=== PATIENT | male | born 1975 | race Two or more races ===

== ENCOUNTER 2022-11-05 16:47 | Inpatient (IN) ==
[2022-11-05] MEDS ORDERED: TYLENOL PO STA (17:03)
[2022-11-05] MEDS ORDERED: SODIUM CHLORIDE 1,000 ML IV STA ×2 (17:05→18:32)
[2022-11-05] MEDS ORDERED: ACETAMINOPHEN 1,000 MG/100 ML BAG IV ONE (17:12)
[2022-11-05 17:20] LABS: BASOPHILS % (AUTO) 0.1 % (0.0-3.0); HEMATOCRIT 34.9 % (42.0-52.0); HEMOGLOBIN 11.9 g/dl (14.0-18.0); IMMATURE GRANULOCYTE % (AUTO) 0.2 % (0.0-5.0); LYMPHOCYTES # (AUTO) 0.8 K/uL (0.60-3.4); LYMPHOCYTES % (AUTO) 8.8 (10.0-50.0); MEAN CORPUSCULAR HGB CONC 34.1 (31.8-35.4); MEAN CORPUSCULAR VOLUME 93.8 fl (80.0-94.0); MONOCYTES # (AUTO) 0.5 K/uL (0.4-2.0); MONOCYTES % (AUTO) 5.6 (0-10); NEUTROPHILS # (AUTO) 7.3 K/ul (2.0-6.9); NEUTROPHILS % (AUTO) 85.3 % (42.2-75.2); PLATELET COUNT 249 10^3/uL (140-440); RDW COEFFICIENT OF VARIATION 14.2 % (11.6-14.8); RED BLOOD COUNT 3.72 10^6/ul (4.70-6.10); WHITE BLOOD COUNT 8.61 K/ul (4.2-10.2)
[2022-11-05] MEDS ORDERED: ZOSYN 3.375 GM 3.375 GM in SODIUM CHLORIDE 100ML 100 ML IV STA (17:25)
--- NOTE | 2022-11-05 17:26 | ED.PDOC ---
General ED Provider: Dr. ALLYSON JEAN-BAPTISTE MD Chief Complaint: Fever Stated Complaint: fever Time Seen by Provider: 11/05/22 16:54 Information Source: Patient Primary Care Provider: PEDRO PABLO MANN Nursing and Triage Documentation Reviewed and Agree: Yes Does patient meet sepsis criteria?: Yes If yes, has appropriate treatment been initiated?: Yes System Inflammatory Response Syndrome: Temp 101F or Greater and Pulse >90 BPM Sepsis Protocol: For patient's 13 years and over: Temp is 96.8 and below OR 101 and greater Pulse >90 BPM Resp >20/minute Acutely Altered Mental Status Are patient's symptoms suggestive of a new infection, such as: -Pneumonia -Skin, Soft Tissue -Endocarditis -UTI -Bone, Joint Infection -Implantable Device -Acute Abdominal Infection -Wound Infection -Meningitis -Blood Stream Catheter Infection -Unknown Review of Systems Review Of Systems Constitutional: Reports Fever and Weakness Eyes: Reports No symptoms All Other Systems: Reviewed and Negative Physical Exam Physical Exam Appearance: Reports Ill-appearing Ill-appearing: Mild Pain Distress: None Eyes: Reports RADHA and EOMI ENT: Reports Ears normal and Nose normal Neck: Supple Respiratory: Reports Airway patent and Breath sounds diminished Cardiovascular: Reports No murmur and Tachycardia GI/: Reports Soft, Nontender, No masses and Other (PEG tube in place) Musculoskeletal: Reports Normal strength and ROM intact Skin: Reports Warm and Normal color Neurological: Reports Sensation intact Psychiatric: Reports Affect appropriate Interpretation EKG Interpretation Time of EKG #1: 17:11 Rate: Tachy Rhythm: Sinus Ectopy: None [place]: NL ST Segment: Normal Interpretation: no signs of acute ischemia Critical Care Note Critical Care Note Total Critical Care Time (mins): 30 Course Course 11/05/22 17:14 11/05/22 17:14 Orders, Labs, Meds: Lab Review 11/05/22 11/05/22 11/05/22 17:14 18:02 18:10 WBC 8.61 RBC 3.72 L Hgb 11.9 L Hct 34.9 L MCV 93.8 MCH 32.0 H MCHC 34.1 RDW Coeff of Meliza 14.2 Plt Count 249 Immature Gran % (Auto) 0.2 Neut % (Auto) 85.3 H Lymph % (Auto) 8.8 L [place] % (Auto) 5.6 Eos % (Auto) 0.0 Baso % (Auto) 0.1 Neut # (Auto) 7.3 H Lymph # (Auto) 0.8 [place] # (Auto) 0.5 Eos # (Auto) 0.0 Baso # (Auto) 0.0 Immature Gran # (Auto) 0.0 Sodium 135.1 Potassium 3.54 Chloride 102.8 Carbon Dioxide 25.9 Anion Gap 9.94 BUN 16.1 Creatinine 1.06 Estimated GFR (MDRD) 76.00 BUN/Creatinine Ratio 15.18 Glucose 132.0 H Lactic Acid 0.90 Calcium 8.49 Total Bilirubin 0.85 AST 28.8 ALT 36.0 Alkaline Phosphatase 79.8 Total Protein 7.84 Albumin 4.33 Globulin 3.51 Albumin/Globulin Ratio 1.23 Influ A Molecular Assay Negative by naat Influ B Molecular Assay Negative by naat SARS CoV-2 RNA Rapid STANLEY Negative Orders Category Date Time Status ADMIT PATIENT INPATIENT .[facility] ([facility]IT[facility] BED) ADMISSION 11/05/22 19:13 Active EKG-(ED ONLY) Stat CARDIO 11/05/22 17:05 Completed TELEMETRY MONITORING TELE CARE 11/05/22 19:14 Active Monitor [ED HEALTH TEACHER APPLIED] .ONCE EMERGENCY 11/05/22 17:25 Active BLOOD CULTURE Stat LAB 11/05/22 17:14 Received CBC W/ AUTO DIFF Stat LAB 11/05/22 17:14 Completed CMP [COMPREHENSIVE METABOLIC PANEL] Stat LAB 11/05/22 17:14 Completed COVID [SARS COV-2 RNA RAPID STANLEY] Stat LAB 11/05/22 18:10 Completed FLU A & B MOLECULAR [FLU A/B MOLECULAR] Stat LAB 11/05/22 18:02 Completed LACTIC ACID Stat LAB 11/05/22 17:14 Completed URINALYSIS C & S IF INDICATED Stat LAB 11/05/22 17:02 Uncollected Acetaminophen Meds 11/05/22 17:12 Discontinued 1,000 mg in 100 ml IV ONCE Acetaminophen [Tylenol] Meds 11/05/22 17:03 Discontinued 650 mg PO ONCE STA Piperacillin Sodium/Tazobactam [Zosyn 3.375 gm] 3.375 Meds 11/05/22 17:25 Discontinued gm 0.9 % Sodium Chloride [Sodium Chloride 100Ml] 100 ml IV ONCE Sodium Chloride 0.9% [Sodium Chloride] 1,000 ml Meds 11/05/22 17:05 Discontinued IV BOLUS Sodium Chloride 0.9% [Sodium Chloride] 1,000 ml Meds 11/05/22 18:[address] ABDOMEN/PELVIS WO CONTRAST Stat RADS 11/05/22 17:04 Completed CXR [CHEST, 1V AP ONLY] Stat RADS 11/05/22 17:02 Completed Medications Generic Name Dose Route Start Last Admin Trade Name Freq PRN Reason Stop Dose Admin Sodium Chloride 1,000 mls @ 1,000 mls/hr 11/05/22 18:32 11/05/22 19:14 Sodium Chloride IV 11/05/22 19:31 1,000 mls/hr BOLUS STA Administration Discontinued Medications Generic Name Dose Route Start Last Admin Trade Name Freq PRN Reason Stop Dose Admin Acetaminophen 650 mg 11/05/22 17:03 11/05/22 17:41 Acetaminophen 325 Mg Tablet PO 11/05/22 17:04 Not Given ONCE STA Sodium Chloride 1,000 mls @ 1,000 mls/hr 11/05/22 17:05 11/05/22 17:18 Sodium Chloride IV 11/05/22 18:04 1,000 mls/hr BOLUS STA Administration Acetaminophen 1,000 mg in 100 mls @ 400 mls/hr 11/05/22 17:12 11/05/22 17:18 Acetaminophen IV 11/05/22 17:26 400 mls/hr ONCE ONE Administration Piperacillin Sod/Tazobactam 100 mls @ 100 mls/hr 11/05/22 17:25 11/05/22 17:54 Sod 3.375 gm/ Sodium Chloride IV 11/05/22 18:24 100 mls/hr ONCE STA Administration Vital Signs: Temp Pulse Resp BP Pulse Ox 11/05/22 16:52 102.1 F H 125 H 22 H 132/75 92 L 47 years old male with past medical history of laryngeal cancer which is finished chemotherapy and radiation 2 weeks ago coming to the ER from home for fever. Patient has been having a fever for few days with some cough denies any chest pain no altered mental status no shortness of breath no nausea or vomiting occasional diarrhea alternating with normal bowel movement and no urinary symptoms.Patient had a fever 102.[address] scan showed lung bases with moderate amount of consolidation posteriorly on the right suggesting pneumonia patient qualifies for sepsis with tachycardia and a fever was given 2 L of NS bolus and Zosyn IV once spoke with oncologist in [place] Dr. Tania Hernandes who agreed with the management plan does not recommend transferring the patient to [facility] is okay recommend the patient here continuing IV Zosyn. 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
[2022-11-05 17:33] LABS: ALBUMIN 4.33 g/dL (3.5-5.0); ALKALINE PHOSPHATASE 79.8 U/L (38-126); ASPARTATE AMINO TRANSFERASE 28.8 U/L (17-59); BILIRUBIN,TOTAL 0.85 mg/dL (0.2-1.3); BLOOD UREA NITROGEN 16.1 mg/dL (9-20); CALCIUM 8.49 mg/dL (8.4-10.2); CARBON DIOXIDE 25.9 mmol/L (22-30.0); CHLORIDE 102.8 mmol/L (98-107); CREATININE 1.06 mg/dL (0.60-1.10); POTASSIUM 3.54 mmol/L (3.5-5.1); SODIUM 135.1 mmol/L (134.5-145); TOTAL PROTEIN 7.84 g/dL (6.3-8.2)
--- NOTE | 2022-11-05 18:12 | CT ---
EXAM: CT ABDOMEN PELVIS HISTORY: Fever, nausea TECHNIQUE: CT abdomen and pelvis without contrast the. Multiplanar images. FINDINGS: No comparison CT. Fatty infiltration of the liver. Gallbladder is normal. No biliary di latation or pancreatic pathology. Spleen and adrenal glands are normal. There is a punctate calculu s within the inferior left kidney. No hydronephrosis or ureteral obstruction. Normal abdominal aort a. Gastrostomy tube is in place and appears appropriately positioned. There is no gastric distensio n. Normal appendix. There is short segment caliber narrowing and apparent wall thickening of the mi d transverse colon which may represent an incidental peristaltic contraction. Assure the patient is up-to-date on colon cancer screening procedures. There is mild distal colon diverticulosis without d iverticulitis. Nonobstructive bowel gas pattern. Urinary bladder prostate are normal. There is no ascites or free air. No abdominal wall hernia. The bones appear appropriate for age. Lung bases re veal a moderate amount of consolidation posteriorly on the right. IMPRESSION: 1. Lung bases reveal moderate amount of consolidation posteriorly on the right suggesting pneumonia. 2. Fatty liver. 3. There is a punctate calculus within the inferior left kidney. No hydronephrosis. 4. Gastrostomy tube is in place and appears appropriately positioned. There is no gastric distensio n. Normal appendix. 5. There is short segment caliber narrowing and apparent wall thickening of the mid transverse colon which may represent an incidental peristaltic contraction. Assure the patient is up-to-date on colo n cancer screening procedures. There is mild distal colon diverticulosis. - - - - - All CT scans are performed using dose optimization techniques as appropriate to the performed exam an d include at least one of the following: Automated exposure control, adjustment of the mA and/or kV according t o size, and the use of iterative reconstruction technique.
[2022-11-05 18:22] LABS: MOLECULAR FLU A NEGATIVE BY NAAT (NEGATIVE); MOLECULAR FLU B NEGATIVE BY NAAT (NEGATIVE)
--- NOTE | 2022-11-05 18:24 | DI ---
EXAM: CHEST ONE-VIEW History: Fever FINDINGS: Normal cardiomediastinal contours. Normal pulmonary vasculature. Linear opacities in the left base. Remainder of the lungs are clear. No chest wall abnormality. Impression: Linear opacity in the left base favoring atelectasis. Known deep right lung base consolidative pneumonia by CT same day is not visualized on AP radiograph.
[2022-11-05 18:52] LABS: SARS COV-2 RNA RAPID NAAT NEGATIVE (NEGATIVE)
[2022-11-05] MEDS ORDERED: VANCOMYCIN 1 GRAM/200 ML PREMIX 1 GM/200 ML BAG IV SCH (20:00)
[2022-11-05 20:22] VITALS: BMI 38.5
[2022-11-05] MEDS ORDERED: ZOFRAN 4 MG/2 ML IVP PRN (20:25)
[2022-11-05] MEDS ORDERED: TYLENOL GT PRN (21:23)
[2022-11-05] MEDS ORDERED: LACTATED RINGERS 1,000 ML IV STA (21:23)
[2022-11-05] MEDS ORDERED: VANCOMYCIN 1 GRAM/200 ML PREMIX 2 GM/400 ML BAG IV ONE (21:30)
[2022-11-05] MEDS ORDERED: LACTATED RINGERS 1,000 ML IV SCH (21:30)
[2022-11-06 00:36] LABS: BILIRUBIN,URINE Negative (NEGATIVE); CLARITY,URINE Clear (CLEAR); COLOR,URINE Yellow (YELLOW); GLUCOSE, URINE (UA) Trace (NEGATIVE); KETONES,URINE Trace (NEGATIVE); LEUKOCYTE ESTERASE ,URINE Negative (NEGATIVE); NITRITE,URINE Negative (NEGATIVE); PROTEIN,URINE 1+ (NEGATIVE); URINE, BLOOD Negative (NEGATIVE); UROBILINOGEN,URINE 0.2 (0.2)
[2022-11-06 00:45] LABS: AMORPHOUS SEDIMENT,UR 2+ (NOT PRESENT); BACTERIA,URINE 2+ (NOT PRESENT); SQUAMOUS EPITHELIAL CELL,UR NOT PRESENT (0-5)
[2022-11-06 00:46] LABS: MUCUS,URINE 2+ (NOT PRESENT)
[2022-11-06] MEDS: ZOSYN 4.5 GM 4.5 GM in SODIUM CHLORIDE 100ML 100 ML IV SCH ×2 (02:01→05:25)
[2022-11-06 05:23] VITALS: BP 147/74; TEMP 100.8
[2022-11-06 06:01] LABS: BASOPHILS % (AUTO) 0.3 % (0.0-3.0); HEMOGLOBIN 9.8 g/dl (14.0-18.0); IMMATURE GRANULOCYTE % (AUTO) 0.4 % (0.0-5.0); LYMPHOCYTES # (AUTO) 0.4 K/uL (0.60-3.4); LYMPHOCYTES % (AUTO) 5.6 (10.0-50.0); MEAN CORPUSCULAR HEMOGLOBIN 31.3 pg (27.0-31.0); MEAN CORPUSCULAR HGB CONC 33.8 (31.8-35.4); MEAN CORPUSCULAR VOLUME 92.7 fl (80.0-94.0); MONOCYTES # (AUTO) 0.3 K/uL (0.4-2.0); MONOCYTES % (AUTO) 4.3 (0-10); NEUTROPHILS # (AUTO) 6.8 K/ul (2.0-6.9); NEUTROPHILS % (AUTO) 89.4 % (42.2-75.2); PLATELET COUNT 217 10^3/uL (140-440); RDW COEFFICIENT OF VARIATION 14.2 % (11.6-14.8); RED BLOOD COUNT 3.13 10^6/ul (4.70-6.10); WHITE BLOOD COUNT 7.64 K/ul (4.2-10.2)
[2022-11-06 06:12] LABS: ALANINE AMINOTRANSFERASE 30.4 U/L (0-50); ALBUMIN 3.45 g/dL (3.5-5.0); ALKALINE PHOSPHATASE 66.9 U/L (38-126); ASPARTATE AMINO TRANSFERASE 29.7 U/L (17-59); BILIRUBIN,TOTAL 0.5 mg/dL (0.2-1.3); BLOOD UREA NITROGEN 13.2 mg/dL (9-20); CALCIUM 7.86 mg/dL (8.4-10.2); CARBON DIOXIDE 24.7 mmol/L (22-30.0); CREATININE 0.89 mg/dL (0.60-1.10); GLUCOSE 148.8 mg/dL (74-106); POTASSIUM 3.33 mmol/L (3.5-5.1); SODIUM 135.1 mmol/L (134.5-145); TOTAL PROTEIN 6.63 g/dL (6.3-8.2)
[2022-11-06 07:40] VITALS: RESP 16
[2022-11-06] MEDS ORDERED: VANCOMYCIN 1.5 GRAM/300 ML PREMIX 1.5 GM/300 ML BAG IV SCH (09:00)
--- NOTE | 2022-11-06 11:39 | PCM.SS ---
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 He states that he got to the point that his whole body was just very painful. He had limited intake through his G- tube. He overall did not feel well. He denies shortness of breath, cough, abdominal pain, urinary symptoms. He states his bowel movements have been unchanged. He states that he finished chemo and radiation for his tonsillar cancer about 2 weeks ago. He does not take anything by mouth except occasional water. In the ER he was found to have a right lower lobe pneumonia. The patient does not have a port. His white blood cell count was normal but he states it is normally low. He was given 2 L of fluid and Zosyn. Once on MedSurg she was giving an additional liter of fluid and vancomycin was added to his regimen. He did develop itching following the vancomycin dose. Urine culture and blood cultures are currently pending. Patient is continuing to run a fever. On my evaluation this morning he feels significantly better. He has no complaints. [facility] Medical History (Updated 11/06/22 @ 11:28 by ARIAS GIMENEZ PA-C) Cancer C80.1 - Malignant (primary) neoplasm, unspecified (ICD-10) Surgical History Gastrostomy tube in place Z93.1 - Gastrostomy status (ICD-10) Family History Other No known health problems Social History (Updated 11/06/22 @ 11:29 by ARIAS GIMENEZ PA-C) Smoking and tobacco status: Current every day smoker Tobacco type: cigarettes Smoking cigarettes per day: 3 Substance use type: does not use Household members: spouse Current occupational status: employed Medications Mecications: Medications at Discharge (Home Meds & RX) levofloxacin 500 mg tablet 500 mg PO DAILY #7 tabs 11/06/22 Allergies Allergies Allergy/AdvReac Type Severity Reaction Status Date / Time vancomycin AdvReac Itching Verified 11/06/22 09:41 Review of Systems Constitutional: Reports Fever, Fatigue, Chills and Weakness Head: Reports Normocephalic and Atraumatic Eyes: Denies Vision Changes Ears: Denies Pain or Drainage Nose: Denies Post Nasal Drip or Congestion Throat: Reports Difficulty Swallowing (chronic) Cardiovascular: Denies Chest pain, Chest Pressure or PND Respiratory: Denies Cough or Shortness of air Gastrointestinal: Denies Nausea, Vomiting, Diarrhea or Abdominal pain Genitourinary: Denies Dysuria or Hematuria Musculoskeletal: Reports Muscle Pain Neurological: Denies Headache, Dizziness, Syncope, Loss of Conciousness or Seizure Physical Examination Appearance: Positive Well-appearing, Well-nourished, No Apparent Distress and Alert and Oriented x3 Head: Positive Normocephalic and Atraumatic Eyes: Positive RADHA Neck: Positive Supple, Trachea Midline and Other (Discoloration of skin from radiation, scarring noted. ) Heart: Positive RRR Respiratory: Positive Airway patent and Breath Sounds Clear, Bilaterally; Negative Crackles, Rhonchi or Wheezes GI/: Positive Soft, Nontender, Bowel sounds normal and No Distention Extremities: Negative Edema Neurological: Positive Cranial nerves intact Psychiatric: Positive Normal Judgement, Normal Insight, Affect Appropriate and Mood Appropriate Vital Signs (Last 4 Hours) Vital Signs Last 4 Hours: Vital Signs: Last 4 Hours 11/06/22 07:37 Respiratory Rate 16 Oxygen Delivery Method Room Air Labs This Visit Labs This Visit: Labs This Visit 11/05/22 11/05/22 11/05/22 17:14 18:02 18:10 WBC 8.61 RBC 3.72 L Hgb 11.9 L Hct 34.9 L MCV 93.8 MCH 32.0 H MCHC 34.1 RDW Coeff of Meliza 14.2 Plt Count 249 Immature Gran % (Auto) 0.2 Neut % (Auto) 85.3 H Lymph % (Auto) 8.8 L [place] % (Auto) 5.6 Eos % (Auto) 0.0 Baso % (Auto) 0.1 Neut # (Auto) 7.3 H Lymph # (Auto) 0.8 [place] # (Auto) 0.5 Eos # (Auto) 0.0 Baso # (Auto) 0.0 Immature Gran # (Auto) 0.0 Sodium 135.1 Potassium 3.54 Chloride 102.8 Carbon Dioxide 25.9 Anion Gap 9.94 BUN 16.1 Creatinine 1.06 Estimated GFR (MDRD) 76.00 BUN/Creatinine Ratio 15.18 Glucose 132.0 H Lactic Acid 0.90 Calcium 8.49 Total Bilirubin 0.85 AST 28.8 ALT 36.0 Alkaline Phosphatase 79.8 Total Protein 7.84 Albumin 4.33 Globulin 3.51 Albumin/Globulin Ratio 1.23 Procalcitonin Urine Color Urine Clarity Urine pH Ur Specific Junction Urine Protein Urine Glucose (UA) Urine Ketones Urine Blood Urine Nitrite Urine Bilirubin Urine Urobilinogen Ur Leukocyte Esterase Urine Microscopic WBC Ur Squamous Epith Cells Amorphous Sediment Urine Bacteria Fine Granular Casts Urine Mucus Influ A Molecular Assay Negative by naat Influ B Molecular Assay Negative by naat SARS CoV-2 RNA Rapid STANLEY Negative 11/06/22 11/06/22 00:30 05:40 WBC 7.64 RBC 3.13 L Hgb 9.8 L Hct 29.0 L MCV 92.7 MCH 31.3 H MCHC 33.8 RDW Coeff of Meliza 14.2 Plt Count 217 Immature Gran % (Auto) 0.4 Neut % (Auto) 89.4 H Lymph % (Auto) 5.6 L [place] % (Auto) 4.3 Eos % (Auto) 0.0 Baso % (Auto) 0.3 Neut # (Auto) 6.8 Lymph # (Auto) 0.4 L [place] # (Auto) 0.3 L Eos # (Auto) 0.0 Baso # (Auto) 0.0 Immature Gran # (Auto) 0.0 Sodium 135.1 Potassium 3.33 L Chloride 105.0 Carbon Dioxide 24.7 Anion Gap 8.73 BUN 13.2 Creatinine 0.89 Estimated GFR (MDRD) 92.00 BUN/Creatinine Ratio 14.83 Glucose 148.8 H Lactic Acid Calcium 7.86 L Total Bilirubin 0.50 AST 29.7 ALT 30.4 Alkaline Phosphatase 66.9 Total Protein 6.63 Albumin 3.45 L Globulin 3.18 Albumin/Globulin Ratio 1.08 Procalcitonin 0.14 H Urine Color Yellow Urine Clarity Clear Urine pH 5.0 Ur Specific [place] 1.025 Urine Protein 1+ H Urine Glucose (UA) Trace H Urine Ketones Trace H Urine Blood Negative Urine Nitrite Negative Urine Bilirubin Negative Urine Urobilinogen 0.2 Ur Leukocyte Esterase Negative Urine Microscopic WBC 2-5 Ur Squamous Epith Cells Not present Amorphous Sediment 2+ Urine Bacteria 2+ Fine Granular Casts 10-20 Urine Mucus 2+ Influ A Molecular Assay Influ B Molecular Assay SARS CoV-2 RNA Rapid STANLEY Microbiology This Visit 11/06/22 00:30 Urine,Clean Catch Urine Culture - Preliminary Imaging Imaging: EXAM: CHEST ONE-VIEW History: Fever FINDINGS: Normal cardiomediastinal contours. Normal pulmonary vasculature. Linear opacities in the left base. Remainder of the lungs are clear. No chest wall abnormality. Impression: Linear opacity in the left base favoring atelectasis. Known deep right lung base consolidative pneumonia by CT same day is not visualized on AP radiograph. EXAM: CT ABDOMEN PELVIS HISTORY: Fever, nausea TECHNIQUE: CT abdomen and pelvis without contrast the. Multiplanar images. FINDINGS: No comparison CT. Fatty infiltration of the liver. Gallbladder is normal. No biliary dilatation or pancreatic pathology. Spleen and adrenal glands are normal. There is a punctate calculus within the inferior left ki dney. No hydronephrosis or ureteral obstruction. Normal abdominal aorta. Gastrostomy tube is in place and appears appropriately positioned. There is no gastric distension. Normal appendix. There is short segment caliber narrowing and apparent wall thickening of the mid transverse colon which may represent an incidental peristaltic contraction. Assure the patient is up-to-date on colon cancer screening procedures. There is mild distal colon diverticulosis without diverticulitis. Nonobstructive bowel gas pattern. Urinary bladder prostate are normal. There is no ascites or free air. No abdominal wall hernia. The bones appear appropriate for age. Lung bases reveal a moderate amount of consolidation posteriorly on the right. IMPRESSION: 1. Lung bases reveal moderate amount of consolidation posteriorly on the right suggesting pneumonia. 2. Fatty liver. 3. There is a punctate calculus within the inferior left kidney. No hydronephrosis. 4. Gastrostomy tube is in place and appears appropriately positioned. There is no gastric distension. Normal appendix. 5. There is short segment caliber narrowing and apparent wall thickening of the mid transverse colon which may represent an incidental peristaltic contraction. Assure the patient is up-to-date on colon cancer screening procedures. There is mild distal colon diverticulosis. - - - - - Review Review Statement: I have independently reviewed and interpreted the labs/EKGs/imaging that were ordered by the ER provider. I have reviewed all outside records that are available currently in our EMR including imaging/notes/labs from previous visits. Plan Reccomendations/Plan: 1. Sepsis in setting of CAP - Blood cultures pending. LA normal. Procal mildly elevated. Abx and 2L given in ER. Additional liter given on medsurg, then maintenance fluids. Tylenol prn for fever. Zosyn and vanc continued. 2. CAP in immunocompromised patient - Zosyn and vanc. Sputum culture, strep pneumo urine antigen, mrsa swab, and legionella ordered. RT consult. 3. Recent history of tonsillar cancer due to HPV s/p chemo/radiation - Follows with Onc in [place]. Does not have a port. Finished treatment 2 weeks ago. Patient was feeling much better this morning. He did continue to run a fever this morning, He is requesting to leave AMA. Discussed with him that he meets sepsis criteria and it would be beneficial to stay at least 48 hours for blood culture results and broad-spectrum antibiotics. He continues to wish to go home. He is alert and oriented x3. He has mental capacity to make decisions for himself. He understands the risks of leaving AMA including worsening condition and . He understands that he is an immunocompromised patient and therefore at risk for severe illness. He knows that he can return to the ER at any time. We will send in Levaquin to treat pneumonia. Follow-up with PCP on Tuesday. Additional Planning: Case discussed with ED Physician, Dr. Whalen Sayed. DVT Prophylaxis: Ambulation Time Spent: Greater than 80 minutes spent with patient, 50% of the time spent with this patient was devoted to counseling and coordination of care. Advanced Care Planning: FULL CODE 3- minutes spent discussing advance care planning. Smoking Cessation: 3 minutes spent discussing smoking cessation. Admit to: Inpatient Discussed Plan of Care with Dr. Stephanie Leo. Review With Patient Reviewed with Patient and Family: Patient and family have been counseled on condition and care plan and have no immediate questions. I have personally discussed and reviewed the patient's visit/current labs/imaging/decision making with Dr. Stephanie Leo, my supervising attending. Total number of minutes spent with patient 85 min. More than 50% of the time spent with this patient was devoted to counseling and coordination of care. 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
== END 2022-11-06 11:40 | disposition left against medical advice (07) | DRG 193 ==
LOC: ED 16:47 → MEDSURG B 19:19
PROVIDERS: ADMIT Hospitalist; ATTEND Physician Assistant

== ENCOUNTER 2022-11-06 18:05 | Inpatient (IN) ==
[2022-11-06] MEDS ORDERED: ZOFRAN 4 MG/2 ML IVP PRN (19:16)
[2022-11-06] MEDS ORDERED: LACTATED RINGERS 1,000 ML IV STA (19:18)
[2022-11-06] MEDS: ZYVOX 600 MG/300 ML IV SCH (20:20)
[2022-11-06 20:38] VITALS: BMI 38.7
[2022-11-06 21:35] LABS: AMPHETAMINE SCREEN,URINE NEGATIVE (NEGATIVE); BARBITURATE SCREEN,URINE NEGATIVE (NEGATIVE); BENZODIAZEPINES SCREEN,URINE NEGATIVE (NEGATIVE); CANNABINOID SCREEN,URINE POSITIVE (NEGATIVE); COCAIN SCREEN,URINE NEGATIVE (NEGATIVE); METHADONE URINE SCREEN NEGATIVE (NEGATIVE); METHAMPHETAMINES SCREEN,URINE NEGATIVE (NEGATIVE); OPIATE SCREEN,URINE NEGATIVE (NEGATIVE); OXYCODONE URINE SCREEN NEGATIVE (NEGATIVE); PHENCYCLIDINE SCREEN,URINE NEGATIVE (NEGATIVE); PROPOXYPHENE URINE SCREEN NEGATIVE (NEGATIVE); TRICYCLIC ANTIDEPRESSANTS URIN NEGATIVE (NEGATIVE)
--- NOTE | 2022-11-06 22:06 | ED.PDOC ---
General ED Provider: Dr. MALCOLM JONES DO Chief Complaint: Fever Stated Complaint: Patient is a 47 yo M here for known sepsis pneumonia Patient arrives tachycardia afebrile with stable blood pressure Patient left AMA today to go home "I had to do some stuff for money." Patient admitted previously treated with Levaquin Patient amenable to admission for continued appropriate care Time Seen by Provider: 11/06/22 18:05 Information Source: Patient and Family Primary Care Provider: PEDRO PABLO MANN Nursing and Triage Documentation Reviewed and Agree: Yes Does patient meet sepsis criteria?: No System Inflammatory Response Syndrome: Not Applicable Sepsis Protocol: For patient's 13 years and over: Temp is 96.8 and below OR 101 and greater Pulse >90 BPM Resp >20/minute Acutely Altered Mental Status Are patient's symptoms suggestive of a new infection, such as: -Pneumonia -Skin, Soft Tissue -Endocarditis -UTI -Bone, Joint Infection -Implantable Device -Acute Abdominal Infection -Wound Infection -Meningitis -Blood Stream Catheter Infection -Unknown Review of Systems Review Of Systems Constitutional: Reports Chills and Fever Eyes: Denies Blindness, Blurred vision or Vision change Ears, Nose, Mouth, Throat: Denies Ear pain, Ear discharge, Nose pain or Nose discharge Respiratory: Reports Cough and Short of air; Denies Stridor or Wheezing Cardiac: Denies Irregular heart rate or Lightheadedness GI: Denies Abdomen distended or Abdominal pain : Denies Burning, Dysuria or Discharge Musculoskeletal: Denies Back pain, Joint pain or Joint swelling Skin: Denies Bruising or Change in hair/nails Neurological: Denies Anxiety or Depressed Endocrine: Reports No symptoms Hematologic/Lymphatic: Reports No symptoms All Other Systems: Reviewed and Negative [facility] Medical History Cancer C80.1 - Malignant (primary) neoplasm, unspecified (ICD-10) Family History Other No known health problems Social History Smoking and tobacco status: Current every day smoker Tobacco type: cigarettes Smoking cigarettes per day: 3 Substance use type: does not use Household members: spouse Current occupational status: employed Surgical History Gastrostomy tube in place Z93.1 - Gastrostomy status (ICD-10) Physical Exam Physical Exam Appearance: Reports Ill-appearing, Well-nourished and Obese Ill-appearing: Moderate Pain Distress: Not Applicable Eyes: Reports RADHA, EOMI and Conjunctiva clear ENT: Reports Ears normal, Nose normal, Oropharynx normal and Other (Poor dentition) Neck: Supple Respiratory: Reports Airway patent, Crackles and Rhonchi; Denies Wheezes or Ret ractions Cardiovascular: Reports Tachycardia GI/: Reports Soft, Nontender and Other (Central abdominal obesity, G tube in place) Musculoskeletal: Reports Normal strength and ROM intact Skin: Reports Warm and Dry Neurological: Reports Sensation intact and Motor intact Psychiatric: Reports Affect appropriate and Mood appropriate Critical Care Note Critical Care Note Total Critical Care Time (mins): 0 Course Course Orders, Labs, Meds: Orders Category Date Time Status ADMIT OBSERVATION [PLACE PATIENT OBSERVATION] .TO ADMISSION 11/06/22 19:03 Active MEDSURG (MONITORED BED) ACTIVITY .Up ad Judy CARE 11/06/22 19:13 Active INTAKE & OUTPUT Q8HR CARE 11/06/22 19:14 Active IP: INSERT SALINE LOCK ONCE CARE 11/06/22 19:14 Active TELEMETRY MONITORING TELE CARE 11/06/22 19:04 Active VITAL SIGNS Q8HR CARE 11/06/22 19:14 Completed CBC W/ AUTO DIFF DAILY@0600 LAB 11/07/22 06:00 Ordered CBC W/ AUTO DIFF DAILY@0600 LAB 11/08/22 06:00 Ordered COMPREHENSIVE METABOLIC PANEL DAILY@0600 LAB 11/07/22 06:00 Ordered COMPREHENSIVE METABOLIC PANEL DAILY@0600 LAB 11/08/22 06:00 Ordered PROCALCITONIN Stat LAB 11/07/22 06:00 Ordered URINE DRUG SCREEN (RAPID FOR ED) [DRUG SCREEN, URINE, LAB 11/06/22 20:20 Completed RAPID] Stat Acetaminophen [Tylenol] Meds 11/06/22 19:16 Active 650 mg PO Q6HR PRN Linezolid [Zyvox 600 mg/300 ml Premix] Meds 11/06/22 19:30 Active 600 mg in 300 ml IV Q12HR Ondansetron HCl/Pf [Zofran 4 mg/2 ml] Meds 11/06/22 19:16 Active 4 mg IVP Q6HR PRN Piperacillin Sodium/Tazobactam [Zosyn 4.5 gm] 4.5 gm Meds 11/06/22 19:15 Active 0.9 % Sodium Chloride [Sodium Chloride 100Ml] 100 ml IV Q6HR Medications Generic Name Dose Route Start Last Admin Trade Name Freq PRN Reason Stop Dose Admin Acetaminophen 650 mg 11/06/22 19:16 Acetaminophen 325 Mg Tablet PO Q6HR PRN fever Piperacillin Sod/Tazobactam 100 mls @ 100 mls/hr 11/06/22 19:15 11/06/22 22:31 Sod 4.5 gm/ Sodium Chloride IV 11/09/22 19:14 100 mls/hr Q6HR COLLIN Administration Linezolid 600 mg in 300 mls @ 150 mls/hr 11/06/22 19:30 11/06/22 20:20 Zyvox 600 Mg/300 Ml Premix IV 11/09/22 19:29 150 mls/hr Q12HR COLLIN Administration Lactated Ringer's 1,000 mls @ 100 mls/hr 11/06/22 19:18 11/06/22 20:19 Lactated Ringers IV 11/07/22 05:17 100 mls/hr .Q10H STA Administration Ondansetron HCl 4 mg 11/06/22 19:16 Ondansetron Hcl/Pf 4 Mg/2 Ml Sdv IVP Q6HR PRN nausea Vital Signs: Temp Pulse Resp BP Pulse Ox 11/06/22 18:10 99.6 F 114 H 20 149/86 H 95 MDM: Patient is a 47 yo M here for Sepsis Pneumonia He just left AMA to go home temporarily No further work up Patient admitted for continued care WDX: Pneumonia sepsis acute condition high complexity Patient amenable to readmission DI Risk Score DI Risk Score: Risk Score Odds of by 30D 0 0.1 (0.1-0.2) 1 0.3 (0.2-0.3) 2 0.4 (0.3-0.5) 3 0.7 (0.6-0.9) 4 1.2 (1.0-1.5) 5 2.2 (1.9-2.6) 6 3.0 (2.5-3.6) 7 4.8 (3.8-6.1) Discharge Plan Discharge Patient Disposition: PLACED OBSERVATION Discharge Problem: Sepsis, Pneumonia, Fever, Immunocompromised, Hypoxia Did you review [place] REFRIGERATION ENGINEER for ALL controlled substances?: Not Applicable ED Provider: MALCOLM JONES Physician Progress Note: []
[2022-11-06] MEDS: ZOSYN 4.5 GM 4.5 GM in SODIUM CHLORIDE 100ML 100 ML IV SCH (22:31)
[2022-11-07] MEDS: ZOSYN 4.5 GM 4.5 GM in SODIUM CHLORIDE 100ML 100 ML IV SCH ×4 (01:03→18:26)
[2022-11-07] MEDS: TYLENOL PO PRN ×2 (05:50→21:19)
[2022-11-07 06:06] LABS: ALANINE AMINOTRANSFERASE 71.2 U/L (0-50); ALBUMIN 3.39 g/dL (3.5-5.0); ALKALINE PHOSPHATASE 61.2 U/L (38-126); ASPARTATE AMINO TRANSFERASE 76.5 U/L (17-59); BILIRUBIN,TOTAL 0.43 mg/dL (0.2-1.3); BLOOD UREA NITROGEN 12.9 mg/dL (9-20); CALCIUM 7.79 mg/dL (8.4-10.2); CARBON DIOXIDE 27.3 mmol/L (22-30.0); CHLORIDE 103.2 mmol/L (98-107); CREATININE 0.9 mg/dL (0.60-1.10); POTASSIUM 3.17 mmol/L (3.5-5.1); SODIUM 135.7 mmol/L (134.5-145); TOTAL PROTEIN 6.55 g/dL (6.3-8.2)
[2022-11-07 06:22] LABS: HEMATOCRIT 29.1 % (42.0-52.0); HEMOGLOBIN 9.7 g/dl (14.0-18.0); IMMATURE GRANULOCYTE % (AUTO) 0.5 % (0.0-5.0); LYMPHOCYTES # (AUTO) 0.5 K/uL (0.60-3.4); MEAN CORPUSCULAR HEMOGLOBIN 31.6 pg (27.0-31.0); MEAN CORPUSCULAR HGB CONC 33.3 (31.8-35.4); MEAN CORPUSCULAR VOLUME 94.8 fl (80.0-94.0); MONOCYTES # (AUTO) 0.4 K/uL (0.4-2.0); MONOCYTES % (AUTO) 5.8 (0-10); NEUTROPHILS # (AUTO) 5.4 K/ul (2.0-6.9); NEUTROPHILS % (AUTO) 85.7 % (42.2-75.2); PLATELET COUNT 225 10^3/uL (140-440); RDW COEFFICIENT OF VARIATION 14.6 % (11.6-14.8); RED BLOOD COUNT 3.07 10^6/ul (4.70-6.10); WHITE BLOOD COUNT 6.34 K/ul (4.2-10.2)
[2022-11-07] MEDS: ZYVOX 600 MG/300 ML IV SCH ×2 (10:01→20:52)
--- NOTE | 2022-11-07 11:37 | PCM ---
Date of Service Date Seen by Provider: 11/07/22 Time Seen by Provider: 09:20 Admit Day/Time Admission Date: 11/06/22 Reason for Admission Chief Complaint: PNEUMONIA, SEPSIS Hospital Provider Hospital Provider: GAIL GUERRERO, [facility] [place] Primary Care Physician Primary Care Physician: PEDRO PABLO MANN History of Present Illness History of Present Illness: 47-year-old male initially admitted to the hospital on 11/05/22 and left AMA yesterday 11/06/22 for sepsis in setting of community-acquired pneumonia. Patient was discharged on Levaquin PO. He returned to the ER last night " to finish his admission". Patient has a history of tonsillar cancer and has G-tube in place. Patient continued to have fevers overnight into this morning. Denies any chest pain, shortness of breath, nausea, vomiting, diarrhea, or other sym ptoms. Patient is on room air currently. Case Discussed With Case Discussed With: Patient's case was discussed with the ER Physicians, Dr. Gutierrez [facility] Medical History Cancer C80.1 - Malignant (primary) neoplasm, unspecified (ICD-10) Surgical History Gastrostomy tube in place Z93.1 - Gastrostomy status (ICD-10) Family History Other No known health problems Social History Smoking and tobacco status: Current every day smoker Tobacco type: cigarettes Smoking cigarettes per day: 3 Substance use type: does not use Household members: spouse Current occupational status: employed Allergies Allergies Allergy/AdvReac Type Severity Reaction Status Date / Time vancomycin AdvReac Itching Verified 11/06/22 18:50 Current Medications Home Medications levofloxacin 500 mg tablet 500 mg PO DAILY #7 tabs 11/06/22 [Rx Confirmed 11/06/22 Last Taken Unknown] Home Acetaminophen (Acetaminophen 325 Mg Tablet) 650 mg PO Q6HR PRN PRN Reason: fever Last Admin: 11/07/22 05:50 Dose: 650 mg Piperacillin Sod/Tazobactam (Sod 4.5 gm/ Sodium Chloride) 100 mls @ 100 mls/hr IV Q6HR COLLIN Stop: 11/09/22 19:14 Last Admin: 11/07/22 05:50 Dose: 100 mls/hr Linezolid (Zyvox 600 Mg/300 Ml Premix) 600 mg in 300 mls @ 150 mls/hr IV Q12HR COLLIN Stop: 11/09/22 19:29 Last Admin: 11/07/22 10:01 Dose: 150 mls/hr Ondansetron HCl (Ondansetron Hcl/Pf 4 Mg/2 Ml Sdv) 4 mg IVP Q6HR PRN PRN Reason: nausea Discontinued Medications Lactated Ringer's (Lactated Ringers) 1,000 mls @ 100 mls/hr IV .Q10H STA Stop: 11/07/22 05:17 Last Admin: 11/06/22 20:19 Dose: 100 mls/hr Review of Systems Constitutional: Reports Fever and Fatigue Head: Reports Normocephalic and Atraumatic Eyes: Reports No symptoms Ears: Reports No symptoms Nose: Reports No symptoms Mouth: Reports No symptoms Throat: Reports No symptoms Cardiovascular: Reports No symptoms Respiratory: Reports No symptoms Gastrointestinal: Reports No symptoms Genitourinary: Reports No Symptoms Musculoskeletal: Reports No symptoms Endocrine: Reports No symptoms Hematology: Reports No symptoms Immunology: Reports No symptoms Neurological: Reports No symptoms Psychiatric: Reports No symptoms Physical examination Most Recent Vital Signs: Most Recent Vital Signs Temperature 98.7 F 11/07/22 10:00 Temperature Source Oral 11/07/22 10:00 Temperature Source Oral 11/06/22 18:10 Pulse Rate 88 11/07/22 10:00 Respiratory Rate 20 11/07/22 10:00 Blood Pressure 114/67 11/07/22 10:00 Blood Pressure Mean 82 11/07/22 10:00 Blood Pressure Left Arm 138/88 11/06/22 19:41 Blood Pressure Location Right Arm 11/07/22 10:00 Blood Pressure Position Sitting 11/07/22 10:00 O2 Sat by Pulse Oximetry 96 11/07/22 10:00 Oxygen Delivery Method Room Air 11/07/22 10:00 Height 5 ft 10 in 11/06/22 19:41 Weight 270 lb 11/06/22 19:41 Telemetry Type Remote Telemetry 11/07/22 07:00 Telemetry Monitoring Continues 11/07/22 07:00 Telemetry Heart Rate 88 11/07/22 07:00 EKG LA Interval 0.16 11/07/22 07:00 EKG QRS Interval 0.08 11/07/22 07:00 Telemetry Strip Reading SR 11/07/22 07:00 Appearance: Positive Well-appearing, Well-nourished, No Apparent Distress and Alert and Oriented x3 Skin: Positive Warm HEENT: Positive Normocephalic, Atraumatic and PERRLA Neck: Positive Supple, Lesions and Midline Trachea Chest/Lungs: Positive Symmetrical With Equal Breath Sounds, Clear to Auscultation Bilaterally and Good Air Movement all 4 Lung [place] Heart: Positive RRR and Pulses Normal GI/: Positive Soft, Nontender, Bowel Sounds Normal, No Distention and No Organomegaly Musculoskeletal: Positive Normal Gait and Station Extremities: Positive Intact Peripheral Pulses, Stable Joints Without Laxity and Good ROM in All Joints Neurological: Positive Alert, Oriented and Muscle Strength 5/5 in Upper and Lower Extremities Bilaterally Psychiatric: Positive Oriented x4, Appropriate Mood, Appropriate Affect, Intact Memory, Good Short-Term Recall, Good Long-Term Recall, Normal Judgement and Normal Insight Labs This Visit Labs This Visit: Labs This Visit 11/06/22 11/07/22 20:20 05:26 WBC 6.34 RBC 3.07 L Hgb 9.7 L Hct 29.1 L MCV 94.8 H MCH 31.6 H MCHC 33.3 RDW Coeff of Meliza 14.6 Plt Count 225 Immature Gran % (Auto) 0.5 Neut % (Auto) 85.7 H Lymph % (Auto) 8.0 L [place] % (Auto) 5.8 Eos % (Auto) 0.0 Baso % (Auto) 0.0 Neut # (Auto) 5.4 Lymph # (Auto) 0.5 L [place] # (Auto) 0.4 Eos # (Auto) 0.0 Baso # (Auto) 0.0 Immature Gran # (Auto) 0.0 Sodium 135.7 Potassium 3.17 L Chloride 103.2 Carbon Dioxide 27.3 Anion Gap 8.37 BUN 12.9 Creatinine 0.90 Estimated GFR (MDRD) 91.00 BUN/Creatinine Ratio 14.33 Glucose 117.0 H Calcium 7.79 L Total Bilirubin 0.43 AST 76.5 H D ALT 71.2 H D Alkaline Phosphatase 61.2 Total Protein 6.55 Albumin 3.39 L Globulin 3.16 Albumin/Globulin Ratio 1.07 Procalcitonin 0.14 H Urine Opiates Screen Negative Ur Oxycodone Screen Negative Urine Methadone Screen Negative Ur Propoxyphene Screen Negative Ur Barbiturates Screen Negative U Tricyclic Antidepress Negative Ur Phencyclidine Scrn Negative Ur Amphetamine Screen Negative U Methamphetamines Scrn Negative U Benzodiazepines Scrn Negative Urine Cocaine Screen Negative U Cannabinoids Screen Positive H Review Statement Review Statement: I have independently reviewed and interpreted the labs/EKGs/imaging that were ordered by the ER provider. I have reviewed all outside records that are available currently in our EMR including imaging/notes/labs from previous visits. Plan Plan: 1. Sepsis in setting of CAP - Blood cultures pending - prelim x 24 hours negative. LA normal. Procal mildly elevated. Abx and 2L given in ER. Additional liter given on medsurg, then maintenance fluids. Tylenol prn for fever. Zosyn and linezolid continued. 2. CAP in immunocompromised patient - Zosyn and linezolid. Sputum culture, strep pneumo urine antigen, mrsa swab, and legionella ordered. RT consult. 3. 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 Does not have a port. Finished treatment 2 weeks ago. 4. Tobacco use - nicotine patch if patient desires, discussed cessation DVT Prophylaxis: Up ad kenny Time Spent: Greater than 80 minutes spent with patient, 50% of the time spent with this patient was devoted to counseling and coordination of care. Advanced Care Plannin minutes spent discussing advance care planning. Smoking Cessation: 3 minutes spent discussing smoking cessation. Disposition: Admit to: Med/surg Observation Discussed Plan of Care with Dr. Yohannes Leo. Medications Medication Orders: Medications Ordered Category Date Time Status Acetaminophen [Tylenol] Meds 11/06/22 19:16 Active 650 mg PO Q6HR PRN Linezolid [Zyvox 600 mg/300 ml Premix] Meds 11/06/22 19:30 Active 600 mg in 300 ml IV Q12HR Ondansetron HCl/Pf [Zofran 4 mg/2 ml] Meds 11/06/22 19:16 Active 4 mg IVP Q6HR PRN Piperacillin Sodium/Tazobactam [Zosyn 4.5 gm] 4.5 gm Meds 11/06/22 19:15 Active 0.9 % Sodium Chloride [Sodium Chloride 100Ml] 100 ml IV Q6HR
[2022-11-07] MEDS: SODIUM CHLORIDE 1,000 ML IV SCH (16:47)
[2022-11-08] MEDS: ZOSYN 4.5 GM 4.5 GM in SODIUM CHLORIDE 100ML 100 ML IV SCH ×3 (00:18→13:38)
[2022-11-08] MEDS: TYLENOL PO PRN (05:33)
[2022-11-08 05:34] LABS: BASOPHILS % (AUTO) 0.2 % (0.0-3.0); HEMATOCRIT 29.7 % (42.0-52.0); HEMOGLOBIN 9.6 g/dl (14.0-18.0); IMMATURE GRANULOCYTE % (AUTO) 0.4 % (0.0-5.0); LYMPHOCYTES # (AUTO) 0.4 K/uL (0.60-3.4); LYMPHOCYTES % (AUTO) 7.4 (10.0-50.0); MEAN CORPUSCULAR HGB CONC 32.3 (31.8-35.4); MEAN CORPUSCULAR VOLUME 95.8 fl (80.0-94.0); MONOCYTES # (AUTO) 0.3 K/uL (0.4-2.0); MONOCYTES % (AUTO) 5.1 (0-10); NEUTROPHILS # (AUTO) 4.5 K/ul (2.0-6.9); NEUTROPHILS % (AUTO) 86.9 % (42.2-75.2); PLATELET COUNT 195 10^3/uL (140-440); RDW COEFFICIENT OF VARIATION 14.9 % (11.6-14.8); WHITE BLOOD COUNT 5.13 K/ul (4.2-10.2)
[2022-11-08 05:50] LABS: ALANINE AMINOTRANSFERASE 122.3 U/L (0-50); ALBUMIN 3.26 g/dL (3.5-5.0); ALKALINE PHOSPHATASE 74.9 U/L (38-126); ASPARTATE AMINO TRANSFERASE 130.6 U/L (17-59); BILIRUBIN,TOTAL 0.57 mg/dL (0.2-1.3); BLOOD UREA NITROGEN 11.8 mg/dL (9-20); CALCIUM 7.78 mg/dL (8.4-10.2); CARBON DIOXIDE 30.5 mmol/L (22-30.0); CHLORIDE 102.3 mmol/L (98-107); CREATININE 0.98 mg/dL (0.60-1.10); GLUCOSE 106.7 mg/dL (74-106); POTASSIUM 3.27 mmol/L (3.5-5.1); SODIUM 136.6 mmol/L (134.5-145); TOTAL PROTEIN 6.41 g/dL (6.3-8.2)
[2022-11-08] MEDS: SODIUM CHLORIDE 1,000 ML IV SCH ×2 (06:22→13:38)
[2022-11-08] MEDS: ZYVOX 600 MG/300 ML IV SCH (08:51)
[2022-11-08 10:08] VITALS: BP 114/75; RESP 15; TEMP 97.6
--- NOTE | 2022-11-08 11:51 | US ---
EXAM: ULTRASOUND ABDOMEN COMPLETE 11/08/2022 HISTORY: Elevated liver enzymes COMPARISON: 11/05/2022 FINDINGS: The liver shows no acute abnormality. Antegrade portal flow. Gallbladder shows no acute abnormality. No gallstones or pericholecystic fluid. Gallbladder wall approximately two - 3 mm thic kness. Common bile duct approximately 3 mm diameter. No acute process of the pancreas. Pancreatic tail not well visualized. The visualized aorta is normal in caliber. The spleen is unremarkable. Right kidney measures 12.0 c m. The left kidney measures up to 13.2 cm. No hydronephrosis. Unremarkable urinary bladder. IMPRESSION: Reference measurements above. There is no acute process.
--- NOTE | 2022-11-08 13:29 | DCSUM ---
Admission Date Admission Date: 11/06/22 Discharge Date Discharge Date: 11/08/22 Admission Diagnosis Admission Diagnosis: Sepsis, Community Acquired Pneumonia Discharge Diagnosis Discharge Diagnosis: Sepsis, Community Acquired Pneumonia Hospital Provider Hospital Provider: GAIL GUERRERO, [facility] [place] Primary Care Physician Primary Care Physician: PEDRO PABLO MANN Summary of History and Physical Summary of History and Physical: 47-year-old male initially admitted to the hospital on 11/05/22 and left AMA 11/06/22 for sepsis in setting of community-acquired pneumonia. Patient was discharged on Levaquin PO. He returned to the ER last night " to finish his admission". Patient has a history of tonsillar cancer and has G-tube in place. Patient continued to have fevers overnight into this morning. Denies any chest pain, shortness of breath, nausea, vomiting, diarrhea, or other symptoms. Patient is on room air currently. Hospital Course Subjective: Patient has continued to run fevers daily since admission. No hypoxia. No other symptoms. 1. Sepsis in setting of CAP - Blood cultures pending - prelim x 48 hours negative. LA normal. Procal mildly elevated. Abx and 2L given in ER. Additional liter given on medsurg, then maintenance fluids. Tylenol prn for fever. Zosyn and linezolid continued. 2. CAP in immunocompromised patient - Zosyn and linezolid. Sputum culture, strep pneumo urine antigen, mrsa swab, and legionella ordered. RT consult. 3. 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 Does not have a port. Finished treatment 2 weeks ago. 4. Tobacco use - nicotine patch if patient desires, discussed cessation 5. Transaminitis - likely due to infection, checked ultrasound which was negative, hepatitis panel pending, denies alcohol use Patient voiced concerns of being in the hospital for an extended period of time after undergoing cancer treatment. Concerned that staff will "give him other contagious illnesses". States he wants to go home on pills and doesn't feel that the IV antibiotics are doing the job. Discussed extensively with patient the risks vs benefits of leaving AMA. Discussed warning signs and to return to ER or other facility if he wishes if his condition worsens. Follow-up with PCP to have liver enzymes rechecked as well. Continue full course of antibiotics as prescribed by the previous provider. Appearance: Alert, Well-appearing and Well-nourished HEENT: MMM, Supple and No JVD CVS: No Murmur and No Rubs Abdomen: Soft, Non-Tender and No Distention Respiratory: No Dyspnea Extremities: No Edema Vital Signs: Most Recent Vital Signs Temperature 97.6 F 11/08/22 10:00 Temperature Source Temporal Artery Scan 11/08/22 10:00 Temperature Source Oral 11/06/22 18:10 Pulse Rate 96 11/08/22 10:00 Respiratory Rate 15 11/08/22 10:00 Blood Pressure 114/75 11/08/22 10:00 Blood Pressure Mean 88 11/08/22 10:00 Blood Pressure Left Arm 138/88 11/06/22 19:41 Blood Pressure Location Left Arm 11/08/22 10:00 Blood Pressure Position Sitting 11/08/22 10:00 O2 Sat by Pulse Oximetry 98 11/08/22 10:00 Oxygen Delivery Method Room Air 11/08/22 10:00 Height 5 ft 10 in 11/06/22 19:41 Weight 270 lb 11/06/22 19:41 Telemetry Type Remote Telemetry 11/08/22 07:00 Telemetry Monitoring Continues 11/08/22 07:00 Telemetry Heart Rate 89 11/08/22 07:00 EKG NC Interval 0.16 11/08/22 07:00 EKG QRS Interval 0.04 L 11/08/22 07:00 Telemetry Strip Reading SR 11/08/22 07:00 Lab Results Last 24 Hours: 11/08/22 05:14 WBC 5.13 RBC 3.10 L Hgb 9.6 L Hct 29.7 L MCV 95.8 H MCH 31.0 MCHC 32.3 RDW Coeff of Meliza 14.9 H Plt Count 195 Immature Gran % (Auto) 0.4 Neut % (Auto) 86.9 H Lymph % (Auto) 7.4 L [place] % (Auto) 5.1 Eos % (Auto) 0.0 Baso % (Auto) 0.2 Neut # (Auto) 4.5 Lymph # (Auto) 0.4 L [place] # (Auto) 0.3 L Eos # (Auto) 0.0 Baso # (Auto) 0.0 Immature Gran # (Auto) 0.0 Sodium 136.6 Potassium 3.27 L Chloride 102.3 Carbon Dioxide 30.5 H Anion Gap 7.07 BUN 11.8 Creatinine 0.98 Estimated GFR (MDRD) 83.00 BUN/Creatinine Ratio 12.04 Glucose 106.7 H Calcium 7.78 L Total Bilirubin 0.57 AST 130.6 H D ALT 122.3 H D Alkaline Phosphatase 74.9 Total Protein 6.41 Albumin 3.26 L Globulin 3.15 Albumin/Globulin Ratio 1.03 Discharge Instructions Discharge Planning: Discharge Planning > 40 minutes If patient is discharged with left ventricular systolic dysfunction: no Discharged with a beta danay? [] If no, why not? [] Discharged with an alaina/arb? [] If no, why not? [] Activity as tolerated. Tube feedings Start levofloxacin 500 mg daily x 7 days Follow-up with PCP this week. Discharge Medications: Medications at Discharge (Home Meds & RX) levofloxacin 500 mg tablet 500 mg PO DAILY #7 tabs 11/06/22 Discharge Plan Discharge Discharge Orders: Discharge Patient (ONCE); Ordered 11/08/22 Ordered By: ELKIN WILL Activity Restrictions/Additional Instructions: Activity as tolerated. Tube feedings Start levofloxacin 500 mg daily x 7 days Follow-up with PCP this week and check liver enzymes. Instructions: Community Acquired Pneumonia (GEN) Patient Disposition: AMA Prescriptions: No Action levofloxacin 500 mg tablet 500 mg PO DAILY Qty: 7 0RF Did you review [place] UTILITY WORKER FILM PROCESSING for ALL controlled substances?: No Discussed opioids are addictive and Narcan is available by prescription or from pharmacy.: No
[2022-11-09 07:25] LABS: HBsAgSCREEN Negative (Negative); HCV ANTIBODY Non Reactive (Non Reactive); HEP A AB, IgM Negative (Negative); HEP B CORE Ab, IgM Negative (Negative)
== END 2022-11-08 13:30 | disposition left against medical advice (07) | DRG 193 ==
LOC: ED 18:05 → MEDSURG B 18:05
PROVIDERS: ADMIT Hospitalist; ATTEND Nurse Practitioner Family